=== PATIENT | female | born 1970 | race Two or more races ===

== ENCOUNTER 2022-11-18 19:56 | Emergency (ER) | payer OTHER, SELFPAY ==
[2022-11-18 20:13] VITALS: BP 143/67; PULSE 86; RESP 18; TEMP 37.2; O2SAT 99; BMI 29.2
[2022-11-18 21:15] LABS: Alanine Aminotransferase 13 U/L (0-31); Albumin Level 4.2 g/dL (3.5-5.0); Alkaline Phosphatase 77 U/L (39-117); Anion Gap 17 (12-20); Aspartate Amino Transferase 17 U/L (5-31); Bilirubin Total 0.2 mg/dL (0.0-1.0); Blood Urea Nitrogen 17 mg/dL (9-16); Calcium 9.5 mg/dL (8.4-10.2); Carbon Dioxide 21 mmol/L (22-29); Chloride 108 mmol/L (96-108); Creatinine Clr Calc Pharmacy 85.9; Estimated Glomerular Filt Rate > 60; Glucose Random 122 mg/dL (60-115); Potassium 3.5 mmol/L (3.3-5.1); Sodium 142 mmol/L (135-145); Total Protein 7.8 g/dL (6.5-8.0)
--- NOTE | 2022-11-18 22:15 | ED.ARRPALP ---
HPI - Arrhythmia/Palpitations General Chief Complaint: Arrhythmia/Palpitations Stated Complaint: ?Tachycardia Time Seen by Provider: 11/18/22 21:58 Source: patient and family Mode of arrival: ambulatory Limitations: no limitations History of Present Illness HPI narrative: Patient comes to the emergency room accompanied by her daughter. Patient states that she has had intermittent palpitations for several years, states since she was ?young?. Patient states she is usually able to control them with vagal maneuvers and self-resolved. Patient states that 10+ years ago she had a Holter monitor test and a stress test, all negative. Patient states that this week she has had more palpitations, intermittent shortness of breath that resolves within a few seconds of starting. Patient states that sometimes she feels a bit lightheaded but she does not pass out. Patient denies chest pain or syncopal episodes Related Data Allergies Allergy/AdvReac Type Severity Reaction Status Date / Time No Known Allergies Allergy Verified 11/18/22 20:12 Review of Systems Review of Systems: Constitutional : No Weight loss, No Fever, No Chills, No Night Sweats, No Fatigue, No Malaise ENT/Mouth : No Hearing loss, No Ear Pain, No Nasal Congestion, No Sinus Pain, No Hoarseness, No sore throat, No Rhinorrhea, No Swallowing Difficulty Eyes: No Eye Pain, No Swelling, No Redness, No Foreign Body, No Discharge, No Vision Changes Cardiovascular : No Chest Pain, No SOB, No Dyspnea on Exertion, No Orthopnea, No Edema, complaining of palpitations Respiratory : No Cough, No Sputum, No Wheezing, No Smoke Exposure, No Dyspnea Gastrointestinal : No Nausea, No Vomiting, No Diarrhea, No Constipation, No abdominal Pain, No Hematochezia, No Melena Genitourinary : no irregular bleeding, No Dysuria, No Urinary Frequency, No Hematuria, No Urinary Incontinence, No Urgency, No Flank Pain, No Urinary Flow Changes, No Hesitancy Musculoskeletal : No joint pain, No Myalgias, No Joint Swelling Skin : No Skin Lesions, No rash Neuro : No Weakness, No Numbness, No Paresthesias, No Loss of Consciousness, No Dizziness, No Headache Psych : No Anxiety/Panic, No Depression, No SI/HI/AH/VH, No Social Issues, Heme/Lymph: No Bruising, No Bleeding,No Lymphadenopathy Endocrine : No Polyuria, No Polydipsia, No Temperature Intolerance PMFSH Social History Social History Smoked in Last 30 Days: No Use of substances other than those prescribed or required for medical reasons: No Advance Directives: No Physical Exam Vital Signs: Vital Signs: Last Vital Signs Temp 99.0 F 11/18/22 20:13 Pulse 86 11/18/22 20:13 Resp 18 11/18/22 20:13 BP 143/67 H 11/18/22 20:13 Pulse Ox 99 11/18/22 20:13 O2 Del Method Room Air 11/18/22 20:13 BMI result Body Mass Index 29.2 Const: Other: Appearance: Alert. Oriented X3. No acute distress. Well-appearing Eyes: Pupils equal, round and reactive to light. ENT: Pharynx normal. Neck: Normal inspection. Neck supple. No lymph nodes noted. No crepitus CVS: Normal heart rate and rhythm. Pulses normal. Normal S1 and S2 Respiratory: No respiratory distress. Breath sounds normal. No Wheezing. No rales Abdomen: Soft and nontender. No rigidity. No distention. Skin: Skin warm and dry. Normal skin color. Normal skin turgor. Extremities: No lower extremity edema. No Lacerations. No Rash Neuro: Oriented X 3. No motor deficit. No sensory deficit. Moving all extremities. No slurred speech. CN 2 through 12 grossly intact Psych: calm, cooperative, normal affect Medical Decision Making Medical Decision Making MDM Narrative: -my interpretation of EKG: Normal sinus rhythm, heart rate 94, no ST segment depression or elevation, nonspecific T-wave inversion in lead 3, QTC 462 -my interpretation of labs: Patient is slightly anemic, 9.6, transfusion not indicated. Chemistry unremarkable, troponin negative -TSH with reflex T4 pending -on physical exam, patient is in sinus rhythm, heart rate in the 80s, patient asymptomatic. -discussed with the patient that it is possible that she may be experiencing sinus tachycardia, AFib, SVT, patient has been in the monitor but no arrhythmias have been apparent -patient has an appointment with her primary care physician in 1 week, discussed with the patient that she would benefit from a Holter monitor, this time she may need a longer Holter evaluation -patients TSH within normal limits. Differential Diagnosis Differential Diagnoses: The differential diagnosis associated with the presentation includes (As above) Admission/Observation Consideration of admission/observation: Escalation of care including admission/observation considered (Given the patient's presentation and symptoms, admission was considered on arrival) Lab Data MDM Lab Attestation statement: I reviewed the patient's lab results. 11/18/22 20:39 11/18/22 20:39 Labs: Lab Results 11/18/22 Range/Units 20:39 WBC 7.1 (4.8-10.8) X10*3/uL RBC 4.26 (4.20-5.50) X10*6/uL Hgb 9.6 L (12.0-16.0) g/dl Hct 30.8 L (37.0-47.0) % MCV 72.3 L (80.0-98.0) fL MCH 22.5 L (27.0-33.0) pg MCHC 31.2 (31.0-35.0) g/dl RDW 17.3 H (11.0-16.0) % Plt Count 369 (160-400) X10*3/uL MPV 10.3 (9.4-12.3) fL Immature Gran % (Auto) 0.3 (0.0-0.4) % Neut % (Auto) 55.9 (45-73) % Lymph % (Auto) 33.8 (20-40) % [place] % (Auto) 8.9 (2-11) % Eos % (Auto) 0.8 (0-4) % Baso % (Auto) 0.3 (0-2) % Lymph # (Auto) 2.4 (1.2-4.9) X10*3/uL [place] # (Auto) 0.6 (0.1-1.2) X10*3/uL Eos # (Auto) 0.1 (0.0-0.4) X10*3/uL Baso # (Auto) 0.0 (0.0-0.2) X10*3/uL Abs Immat Gran (auto) 0.02 (0.00-0.03) X10*3/uL Absolute Neuts (auto) 4.0 (2.0-8.3) x10*3/uL Absolute Nucleated RBC 0.000 (0.0-0.012) X10*3/uL Nucleated RBC % (auto) 0.0 (0.0-0.2) /100WBC Sodium 142 (135-145) mmol/L Potassium 3.5 (3.3-5.1) mmol/L Chloride 108 (96-108) mmol/L Carbon Dioxide 21 L (22-29) mmol/L Anion Gap 17 (12-20) BUN 17 H (9-16) mg/dL Creatinine 0.73 (0.5-1.4) mg/dL Estim Creat Clear Calc 85.9 Estimated GFR > 60 Random Glucose 122 H (60-115) mg/dL Calcium 9.5 (8.4-10.2) mg/dL Total Bilirubin 0.2 (0.0-1.0) mg/dL AST 17 (5-31) U/L ALT 13 (0-31) U/L Alkaline Phosphatase 77 (39-117) U/L Troponin I High Sens < 2.7 (<3.5-17.0) ng/L Total Protein 7.8 (6.5-8.0) g/dL Albumin 4.2 (3.5-5.0) g/dL TSH 1.65 (0.32-4.0) uIU/mL Independent Interpretation I performed an independent interpretation of an: EKG and Plain X-Ray (My interpretation of chest x-ray: No pulmonary edema) Radiology Impression Discussion of test interpretation with radiology: I have reviewed the radiologist's reading. Radiologist Impression: Normal appearance of the cardiomediastinal silhouette. No focal airspace opacity, pleural effusion or pneumothorax. No acute osseous findings. Visualized upper abdomen is within normal limits. XR/XR chest 2V IMPRESSION: No acute cardiopulmonary findings. Critical Care Time Critical Care Time Critical Care Time: Yes Total Critical Care Time: 60 Attestation: I have personally provided critical care time. Time includes review of lab data, radiology results, discussion with consultants, and monitoring for potential decompensation. Intervention performed as documented. Discharge Plan Discharge Clinical Impression: Palpitations Patient Disposition: Home, Self-Care Instructions: Heart Palpitations (ED) Additional Instructions: Please follow-up with your primary care physician tomorrow. It is likely that you may need to be referred to Cardiology for a Holter monitor evaluation and/or a stress test. If you have any worsening or new symptoms, please return to the emergency room or call 911 Referrals: Michael Fernandes MD [Physician] - 11/22/22
[2022-11-18 22:56] LABS: TSH reflex Free T4 1.65 uIU/mL (0.32-4.0)
[2022-11-18 23:54] VITALS: PULSE 86; O2SAT 99
== END 2022-11-18 23:57 | disposition home or self-care (01) ==
PROVIDERS: Emergency Provider Emergency Medicine; PCP Internal Medicine
DX: R00.2 Palpitations (principal); R06.02 Shortness of breath
CPT/HCPCS: 36415; 71046; 80053; 84443; 84484; 85025; 93005; 99283; 99285

== ENCOUNTER 2023-09-07 23:17 | Emergency (ER) | payer OTHER, SELFPAY ==
--- NOTE | ~2023-09-07 | CT_ITS ---
EXAMINATION: CT LUMBAR SPINE WITHOUT CONTRAST CLINICAL INFORMATION: Reason for Exam L2-L3 radiculopathy acute COMPARISON: None available. TECHNIQUE: Multidetector helical imaging was performed through the lumbar spine. Coronal and sagittal reformatted images were created. This CT examination was performed using dose optimization techniques as appropriate, variously including the following: *Automated exposure control *Adjustment of mA and/or kV according to patient size (this includes techniques or standardized protocols for targeted exams where dose is matched to indication/reason for exam; i.e. extremities or head) *Use of iterative reconstruction technique DLP; 408 mGy-cm FINDINGS: There is anatomic alignment of the lumbar vertebral bodies and posterior elements. Vertebral body heights are maintained. No acute fracture is seen. Intervertebral disc spaces are relatively well preserved. Mild multilevel endplate osteophytes are present. There is suggestion of mild central stenosis at L4-L5. Sacroiliac joints appear intact. No paraspinal soft tissue abnormality identified. CT/CT lumbar spine wo IV con IMPRESSION: No acute osseous findings identified in the lumbar spine. Suggestion of mild central stenosis at L4-L5. Given the clinical history, evaluation for stenoses would be better performed with MRI.
[2023-09-07 23:21] VITALS: BP 144/59; PULSE 90; RESP 18; TEMP 36.8; O2SAT 97; BMI 28.7
[2023-09-08 00:38] VITALS: BP 143/61; PULSE 72; RESP 18; TEMP 36.8; O2SAT 97
[2023-09-08] MEDS: Morphine Sulfate Immed Release 15 MG TABLET PO (01:08)
--- NOTE | 2023-09-08 02:21 | ED_ITS ---
HPI - Back Pain/Injury General Chief Complaint: Back Pain/Injury Stated Complaint: lower left back pain Time Seen by Provider: 09/08/23 00:11 Source: patient Mode of arrival: ambulatory Limitations: no limitations History of Present Illness ED Provider: carolann BROCK Narrative: Patient comes here with low back pain happened about 2 weeks ago after lifting heavy laundry patient has tried ibuprofen Tylenol without much relief pain is persistent and increases on movements with radiation to the thighs mostly on the left side no bladder or bowel involvement no motor weakness patient ambulatory otherwise Related Data Previous Rx's ?Medication ?Instructions ?Recorded cyclobenzaprine 10 mg tablet 10 mg PO Q8H #20 tabs 09/08/23 morphine 15 mg immediate release 15 mg PO Q8H PRN pain #15 tabs 09/08/23 tablet prednisone 20 mg tablet 40 mg (2 x 20 mg) PO DAILY #10 tabs 09/08/23 Allergies Allergy/AdvReac Type Severity Reaction Status Date / Time No Known Allergies Allergy Verified 09/07/23 23:24 Review of Systems Review of Systems: Yes all other systems are reviewed and are negative FOR[facility]LY [facility] Social History Social History Advance Directives: No Advance Directives Information Provided: No Do you have a plan to hurt others: No Plan Physical Exam Vital Signs: Vital Signs: Last Vital Signs Temp 98.3 F 09/08/23 03:02 Pulse 72 09/08/23 03:02 Resp 18 09/08/23 03:02 BP 143/61 H 09/08/23 03:02 Pulse Ox 97 09/08/23 03:02 O2 Del Method Room Air 09/08/23 03:02 BMI result Body Mass Index 28.7 Appearance: Alert. Oriented X3. In moderate distress Eyes: No pallor or icterus ENT: Pharynx normal. Oral Mucosa moist Neck: Normal inspection. Neck supple. CVS: Normal heart rate and rhythm. Pulses normal. Respiratory: No respiratory distress. Equal air entry bilateral, no wheezing/rales/rhonchi Abdomen: Soft and nontender. Bowel sounds are present, no mass palpable, no CVA tenderness Skin: Skin warm and dry. Normal skin color. Normal skin turgor. Extremities: No lower extremity edema. No calf tenderness back: Tenderness L2-L3 area with surrounding paraspinal spasm Neuro: Oriented X 3. No motor deficit. No sensory deficit.No cerebellar signs , cranial nerves II-XII intact Medications Administered Discontinued Medications Generic Name Dose Route Start Last Admin Trade Name Darrian PRN Reason Stop Dose Admin Cyclobenzaprine HCl 10 mg 09/08/23 02:24 09/08/23 02:55 Cyclobenzaprine Hcl 10 Mg Tablet PO 09/08/23 02:25 10 mg ONCE ONE Administration Dexamethasone 10 mg 09/08/23 02:24 09/08/23 02:56 Dexamethasone 2 Mg Tablet PO 09/08/23 02:25 10 mg ONCE ONE Administration Morphine Sulfate 15 mg 09/08/23 00:31 09/08/23 01:08 Morphine Sulfate Immed Release 15 Mg Tablet PO 09/08/23 00:32 15 mg ONCE ONE Administration Medical Decision Making Medical Decision Making [facility] Narrative: Patient came with acute lumbar pain likely from minor disc herniation no signs of cord compression no signs of cauda patient felt better after pain medication CT scan was done which showed slight stenosis will discharge patient home advised to follow with pain clinic Differential Diagnosis Differential Diagnoses: The differential diagnosis associated with the presentation includes Radiology Impression Discussion of test interpretation with radiology: I have reviewed the radiologist's reading. Radiologist Impression: [address] [address] [address] Scan Report Signed Patient: Airam Webster MR#: [id number] : 1970 Acct:[id number] Age/Sex: 53 / F ADM Date: 09/07/23 Loc: .ED Attending Dr: Ordering Physician: Martín Alicea MD Date of Service: 09/08/23 Procedure(s): CT lumbar spine wo IV con Accession Number(s): [id number] cc: Luz Schwartz MD; Martín Alicea MD~ EXAMINATION: CT LUMBAR SPINE WITHOUT CONTRAST CLINICAL INFORMATION: Reason for Exam L2-L3 radiculopathy acute COMPARISON: None available. TECHNIQUE: Multidetector helical imaging was performed through the lumbar spine. Coronal and sagittal reformatted images were created. This CT examination was performed using dose optimization techniques as appropriate, variously including the following: *Automated exposure control *Adjustment of mA and/or kV according to patient size (this includes techniques or standardized protocols for targeted exams where dose is matched to indication/reason for exam; i.e. extremities or head) *Use of iterative reconstruction technique DLP; 408 mGy-cm FINDINGS: There is anatomic alignment of the lumbar vertebral bodies and posterior elements. Vertebral body heights are maintained. No acute fracture is seen. Intervertebral disc spaces are relatively well preserved. Mild multilevel endplate osteophytes are present. There is suggestion of mild central stenosis at L4-L5. Sacroiliac joints appear intact. No paraspinal soft tissue abnormality identified. CT/CT lumbar spine wo IV con IMPRESSION: No acute osseous findings identified in the lumbar spine. Suggestion of mild central stenosis at L4-L5. Given the clinical history, evaluation for stenoses would be better performed with MRI. Discharge Plan Discharge Clinical Impression: Lumbar radiculopathy Patient Disposition: Home, Self-Care Instructions: Acute Low Back Pain (ED) Additional Instructions: Rest at home Take pain medication muscle relaxant as prescribed Prednisone as prescribed for inflammation Follow with your PCP for re-evaluation Prescriptions: New cyclobenzaprine 10 mg tablet 10 mg PO Q8H Qty: 20 0RF prednisone 20 mg tablet 40 mg PO DAILY Qty: 10 0RF morphine 15 mg tablet 15 mg PO Q8H PRN (Reason: pain) Qty: 15 0RF Rx Instructions: Partial Fill upon patient request. Interventions: ED Discharge Assessment Last Done: 09/08/23 03:02 Discharge Date/Time: 09/08/23 03:03 Print Language: Slovenian
[2023-09-08] MEDS: Cyclobenzaprine HCl 10 MG TABLET PO (02:55)
[2023-09-08] MEDS: dexAMETHasone 2 MG TABLET 10 MG PO (02:56)
[2023-09-08 03:02] VITALS: BP 143/61; PULSE 72; RESP 18; TEMP 36.8; O2SAT 97
== END 2023-09-08 03:03 | disposition home or self-care (01) ==
PROVIDERS: Emergency Provider Internal Medicine; PCP Internal Medicine
DX: M54.16 Radiculopathy, lumbar region (principal)
CPT/HCPCS: 72131; 99283; 99284; J8540